=== PATIENT | female | born 1945 | race African-American/Black ===

== ENCOUNTER 2020-12-14 20:38 | Emergency (ER) | payer BC ==
[~2020-12-14] VITALS: Ht 165.1 cm; Wt 91.0 kg
[2020-12-14 21:50] LABS: CLARITY URINE CLEAR (CLEAR); COLOR URINE YELLOW (YELLOW); KETONES URINE TRACE (NEGATIVE); LEUKOCYTE ESTERASE URINE 2+ (NEGATIVE); NITRITE URINE NEGATIVE (NEGATIVE); OCCULT BLOOD URINE NEGATIVE (NEGATIVE); PROTEIN URINE NEGATIVE (NEGATIVE); SPECIFIC GRAVITY URINE 1.026 (1.005-1.030)
[2020-12-14 22:07] LABS: BASOPHILS % 0.8 % (0.0-2.0); EOSINOPHILS % 3.2 % (0.0-5.0); HEMATOCRIT. 33.5 % (36.0-48.0); HEMOGLOBIN. 11.2 g/dL (12.0-16.0); LYMPHOCYTES % 44.1 % (20.0-50.0); MEAN CORPUSCULAR HEMOGLOBIN 29.1 pg (28.0-32.0); MEAN CORPUSCULAR VOLUME 87.2 fL (81.0-99.0); MEAN PLATELET VOLUME 7.6 fl (7.4-10.4); NEUTROPHILS % 42.9 % (40.0-76.0); PLATELET 332 x1000/uL (130-400); RED BLOOD CELL COUNT 3.84 mill/uL (4.2-5.4); RED CELL DISTRIBUTION WIDTH 15.5 % (11.6-14.6)
[2020-12-14 22:10] LABS: CHLORIDE 108 mEq/L (98-107)
[2020-12-14] MEDS ORDERED: TETANUS, DIPHTHERIA, PERTUSSIS VAC/PF 0.5ML (>7YR OLD) IM ONE (22:45)
[2020-12-15 00:25] VITALS: BP 117/91
== END 2020-12-15 00:32 | disposition home or self-care (01) ==
LOC: ER 20:38
DX: S91.119A Laceration without foreign body of unspecified toe without damage to nail, initial encounter (principal); E11.9 Type 2 diabetes mellitus without complications; X58.XXXA Exposure to other specified factors, initial encounter; Y93.89 Activity, other specified; Y92.89 Other specified places as the place of occurrence of the external cause; Y99.8 Other external cause status
CPT/HCPCS: 36415; 80053; 81003; 84484; 85025; 90471; 90715; 93005; 99284

== ENCOUNTER 2021-11-27 17:17 | Emergency (ER) | payer BC, OTHER ==
[~2021-11-27] VITALS: Ht 165.1 cm; Wt 109.0 kg
[2021-11-27] MEDS ORDERED: ONDANSETRON HCL 4MG/2ML INJ IV STA (17:57)
[2021-11-27] MEDS ORDERED: MAGNESIUM/ALUMINUM HYDROXIDE/SIMETHICONE 30ML UDC PO STA (17:57)
[2021-11-27] MEDS ORDERED: PANTOPRAZOLE SODIUM 40 MG/VIAL IV STA (17:57)
[2021-11-27] MEDS ORDERED: VISCOUS LIDOCAINE 2% 15 ML UDC PO STA (17:57)
[2021-11-27] MEDS ORDERED: ACETAMINOPHEN 325MG TABLET PO ONE (18:00)
[2021-11-27] MEDS ORDERED: FERR325T6 MT (18:03)
[2021-11-27] MEDS ORDERED: FAMO20TA8 MT (18:03)
[2021-11-27] MEDS ORDERED: ATOR20TA65 MT (18:03)
[2021-11-27] MEDS ORDERED: ASPI-1406 MT (18:03)
[2021-11-27] MEDS ORDERED: BENA1TAB18 MT (18:03)
[2021-11-27] MEDS ORDERED: MEMA28CA MT (18:03)
[2021-11-27] MEDS ORDERED: FOLI-43 MT (18:03)
[2021-11-27] MEDS ORDERED: METF-414 MT (18:03)
[2021-11-27 19:49] LABS: BASOPHILS % 0.5 % (0.0-2.0); EOSINOPHILS % 0.2 % (0.0-5.0); HEMATOCRIT. 37.1 % (36.0-48.0); HEMOGLOBIN. 12.3 g/dL (12.0-16.0); LYMPHOCYTES % 22.7 % (20.0-50.0); MEAN CORPUSCULAR HEMOGLOBIN 28.7 pg (28.0-32.0); MEAN CORPUSCULAR VOLUME 86.5 fL (81.0-99.0); MEAN PLATELET VOLUME 8.2 fl (7.4-10.4); NEUTROPHILS % 66.6 % (40.0-76.0); PLATELET 328 x1000/uL (130-400); RED BLOOD CELL COUNT 4.29 mill/uL (4.2-5.4); RED CELL DISTRIBUTION WIDTH 14.6 % (11.6-14.6)
[2021-11-27 20:00] LABS: CHLORIDE 105 mEq/L (98-107)
[2021-11-27] MEDS ORDERED: VISCOUS LIDOCAINE 2% 15 ML UDC PO NR (22:45)
[2021-11-27] MEDS ORDERED: MAGNESIUM/ALUMINUM HYDROXIDE/SIMETHICONE 30ML UDC PO NR (22:45)
[2021-11-27] MEDS ORDERED: ONDANSETRON HCL 4MG/2ML INJ IV NR (22:45)
[2021-11-27] MEDS ORDERED: ACETAMINOPHEN 325MG TABLET PO NR (22:45)
[2021-11-27] MEDS ORDERED: PANTOPRAZOLE SODIUM 40 MG/VIAL IV NR (22:45)
[2021-11-27] MEDS ORDERED: ONDA4TAB5 MT (22:46)
[2021-11-27] MEDS ORDERED: ACET-2708 MT (22:46)
[2021-11-28 00:57] VITALS: BP 115/87
== END 2021-11-28 00:59 | disposition home or self-care (01) ==
LOC: ER 17:17
DX: R19.7 Diarrhea, unspecified (principal); R11.0 Nausea; R03.0 Elevated blood-pressure reading, without diagnosis of hypertension
CPT/HCPCS: 36415; 74176; 80053; 83605; 85025; 99284